=== PATIENT | female | born 1955 | race Caucasian/White ===

== ENCOUNTER 2016-12-30 18:53 | Emergency (ER) | payer OTHER ==
[2016-12-30] MEDS ORDERED: 0.9% Sodium Chloride 1,000 ML IV ONE (19:02)
--- NOTE | 2016-12-30 19:02 | ED.REPORT ---
HPI-Trauma Minor / Fall Date of Service Dec 30, 2016 ED Provider: Dr. Agee 61 y/o female with a hx of neck fusion surgery presents to the ED via EMS due to a head injury after a fall down 15 stairs onto concrete. Her GCS was 14. Pt' s did not witness the fall but found the pt on the ground, just prior to arrival. She has a laceration over her forehead and left ear bleed. As per the EMS, the pt had been drinking heavily prior to the fall. Her vitals en route were normal and she was answering questions appropriately. In the ED, the pt states she remembers falling down and reports a headache. She denies neck pain, loose teeth and pain in any other area. Nursing Notes Stated Complaint: FALL ON A CONCRETE FLOOR Nursing Notes Reviewed: Yes Allergies: Coded Allergies: No Known Allergies (Unverified Allergy, Unknown, 12/30/16) General Time Seen by MD: 19:02 Chief Complaint Fall down stairs (landed on concrete) Hx Obtained From: Patient, EMS Arrived By: Ambulance Onset Occurred: Onset unknown (found on the ground prior to arrival) Symptom Duration: Since onset Caused by: Fall down stairs Location: Head Quality: Painful Severity: Current: Severe Severity: Maximum: Severe Recent Healthcare: No recent doctor visit Similar Sx Previous: No Past Medical History Past Medical History GERD DEPRESSION ANXIETY CANCER Past Surgical History fusion in neck Smoking History Unknown if Ever Smoker Social History Other Social History: Ambulatory Status Independent Review of Systems Reports: laceration over forehead Reports: left ear bleeding Denies: loose teeth Musculoskeletal: Denies: Neck pain Neurologic: Reports: Headache Complete sys rev & neg: except as marked. Physical Exam Initial Vital Signs BP = 128/82 Temp = 101 O2 = 99 Resp = 17 GCS = 14 Initial VS: Reviewed, Vital signs abnormal Respiratory: Breath sounds normal, Clear to auscultation, No respiratory distress Cardiovascular: Regular rate & rhythm, Heart sounds normal, Intact distal pulses Abdomen / GI: Soft, Non-tender, No guarding, No rebound Skin: Warm, Dry, No cyanosis General/Constitutional: Awake, Alert Appearance / Presentation: Positive: Intoxicated Pt smelling of alcohol. Neck: Atraumatic, Non-tender Trauma - Neck Specific: Positive: Immobilized - C Collar Head / Eyes: PERRL, No periorbital swelling, No scleral icterus, Conjunctiva NL , Eyelids NL Large 4cm hematoma to left forehead ENT: Airway patent, Mucous membranes moist, No facial swelling, Gums/dentition NL Hematoma to left ear. Gross blood coming from left ear. Bruising behind left ear. Back: Inspection NL, Non-tender, No midline vertebral tend No step-off noted Redness to sacrum Lower Extremity / Pelvis / MS: No deformity, Neurologic intact, Vascular intact Bruising to her right farmer. Large hematoma and bruise to left proximal femur. Neurologic: No motor deficits, No sensory deficits Speech: Positive: Slurred She is a smell of alcohol, GCS of 14 Interpretation & Diagnostics Lab Results Interpretation Result Diagram: 12/30/16203812/30/16 1910 Test 12/30/16 19:10 12/30/16 20:39 White Blood Count 7.2th/mm3 (3.8-10.1) Red Blood Count 4.49mil/mm3 (3.90-5.20) Mean Corpuscular Volume 91.5fL (81-100) Mean Corpuscular Hemoglobin 29.8pg (27.0-35.0) Mean Corpuscular Hemoglobin Concent 32.6% (32.0-37.0) Red Cell Distribution Width 13.0% (12.3-15.4) Platelet Count 207bil/L (150-400) Neutrophils (%) (Auto) 57.0% (40-74) Lymphocytes (%) (Auto) 33.8% (14-46) Monocytes (%) (Auto) 6.1% (4-12) Eosinophils (%) (Auto) 2.1% (0-5) Basophils (%) (Auto) 0.6% (0-3) Prothrombin Time 9.9sec (8.1-12.5) Prothromb Time International Ratio 0.93ratio Activated Partial Thromboplast Time 18.7sec (22.8-33.0) Sodium Level 137mEq/L (134-144) Potassium Level 3.6mEq/L (3.5-5.2) Chloride Level 100mEq/L (97-108) Carbon Dioxide Level 21mmol/L (18-29) Blood Urea Nitrogen 11mg/dL (8-27) Creatinine 0.65mg/dL (0.57-1.00) Estimat Glomerular Filtration Rate 133mL/min (>59) Glucose Level 117mg/dL (60-99) Calcium Level 8.7mg/dL (8.5-10.1) Magnesium Level 2.0mg/dL (1.6-2.6) Total Bilirubin 0.2mg/dL (0.0-1.2) Aspartate Amino Transf (AST/SGOT) 42U/L (0-50) Alanine Aminotransferase (ALT/SGPT) 26U/L (0-32) Alkaline Phosphatase 72U/L (25-165) Total Protein 6.9g/dL (6.4-8.4) Albumin 4.1g/dL (3.4-5.0) Alcohols 280mg/dL (0-10) Hemoglobin 12.9g/dL (12.0-15.6) Hematocrit 39.2% (35.0-46.0) X-Ray Chest Interpretation Chest Xray Interpretation: IMPRESSION: No acute pulmonary process. Dictated by: Tereza Shrestha M.D. on 12/30/2016 at 19:48 Approved by: Tereza Shrestha M.D. on 12/30/2016 at 19:48 View: Portable, 1 view Interpretation / Wet Read by: Interpret - Radiologist X-Ray Interpretation Xray Interpretation: IMPRESSION: No visualized fracture. Occult injury cannot be excluded and followup imaging is recommended if clinical concern persists. Dictated by: Tereza Shrestha M.D. on 12/30/2016 at 19:46 Approved by: Tereza Shrestha M.D. on 12/30/2016 at 19:47 X-Ray Ordered: Pelvis Interpretation / Wet Read by: Interpret - Radiologist Xray Interpretation: IMPRESSION: No visualized acute fracture or dislocation. However, if clinical concern and/or pain persist, short interval imaging followup in 7-10 days is recommended, as occult injury cannot be definitively excluded. Dictated by: Tereza Shrestha M.D. on 12/30/2016 at 20:29 Approved by: Tereza Shrestha M.D. on 12/30/2016 at 20:30 X-Ray Ordered: Femur left Interpretation / Wet Read by: Interpret - Radiologist CT Head Interpretation IMPRESSION: 1. Multifocal areas of hyperdensity as described above most consistent with traumatic hemorrhage. 2. Depressed left frontal and nondisplaced left occipital skull fractures. It is noted that the occipital skull fracture extends along the margin of the posterior ring of C1 without displacement as above. 3. Fluid is present within the left mastoid air cells as well as auditory canals as described above. Fracture is felt to be present, although poorly characterized through the mastoid air cells and with likely extension towards the middle skull base. The above findings were discussed with Dr. Purvi Agee on 12/30/16 at 8 PM. Dictated by: Tereza Shrestha M.D. on 12/30/2016 at 20:22 Approved by: Tereza Shrestha M.D. on 12/30/2016 at 20:27 Study: Head CT no contrast Interpretation / Wet Read by: Interpret - Radiologist CT C-Spine Interpretation IMPRESSION: 1. Skull base fracture, incompletely visualized and there characterize on CT brain of 12/30/16 as above. 2. Extension of the occipital-occiput fracture extending along the superiormost aspect of the posterior ring of C1 without gross evidence of C1 ring fracture. 3. Left cerebellar hemorrhage, seen on CT brain 12/30/16. 4. Trace left pneumothorax with left anterior first and second rib fractures. The above findings were discussed with Dr. Purvi Agee on 12/30/16 at 8:35 PM. Dictated by: Tereza Shrestha M.D. on 12/30/2016 at 20:33 Approved by: Tereza Shrestha M.D. on 12/30/2016 at 20:46 Study type: CT no contrast Interpretation / Wet Read by: Interpret - Radiologist Re-Eval/Medical Decision Med Decision/Clinical Course Patient had a 15 foot fall, she is intoxicated. She has obvious signs of trauma to her head. CT reveals intracranial hemorrhage as well as depressed all fracture and clinically she has a basilar skull fracture. The patient was transferred to [facility]. The patient was cooperative while here and answering questions appropriately. The patient was oriented to person and time. While in the department she developed upper back pain, no imaging was obtained given the patient is being transferred to [facility] by a parent left and would be reevaluated. On initial exam the patient did not have any obvious deformities or pain to her spine. Source of Hx: Old records Re-Evaluation/Progress : Time of Eval: 20:08 Re-Evaluation/Progress Note: Rechecked pt. The pt now complaining of upper back pain. Discussed lab results, imaging results, diagnosis and plan to transfer. Pt understands and agrees with the plan. All questions addressed. Consultation : Call Returned at: 20:21 Generator Worker: Accepts admit Note: Dr. Fallon Franks at [facility] accepts transfer. Counseled Regarding: Diagnosis, Lab results, Need for transfer Discharge & Departure Impression: Primary Impression: Cerebral contusion Encounter type: initial encounter Laterality: unspecified laterality Loss of consciousness presence/duration: without LOC Qualified Code: S06.330A - Contusion and laceration of cerebrum, unspecified, without loss of consciousness , initial encounter Additional Impression: Depressed skull fracture Encounter type: initial encounter Fracture type: closed Qualified Code: S02.91XA - Unspecified fracture of skull, initial encounter for closed fracture Disposition: Transfer, Acute Care Facility Receiving Hospital: [facility] Transfer Accepted: Yes Transfer Accepted at: 20:21 Transfer Reason: Higher level of care Patient Status: Stable for transfer Patient Informed: Yes Referrals: Khadijah Maya MD (PCP) Scribe Attestation Portions of this note were transcribed by Dasia Paul. I, , personally performed the history, physical exam and medical decision-making;I reviewed and confirmed the accuracy of the information in the transcribed note. Signed by Hali Purvis. 12/30/16 20:48 copies to: Khadijah Maya MD, Jena M MD Dec 30, 2016 19:02 Dasia Paul Dec 30, 2016 20:04
[2016-12-30 19:26] LABS: BASOPHILS % (AUTO) 0.6 % (0-3); EOSINOPHILS % (AUTO) 2.1 % (0-5); MONOCYTES % (AUTO) 6.1 % (4-12); Mean Corpuscular Hemoglobin 29.8 pg (27.0-35.0); Mean Corpuscular Volume 91.5 fL (81-100); Platelet Count 207 bil/L (150-400)
[2016-12-30 19:44] LABS: INR 0.93 ratio
--- NOTE | 2016-12-30 19:49 | DRSVH ---
PROCEDURE: X-RAY PELVIS, ONE OR TWO VIEWS ([id number]) INDICATIONS: trauma - patient fell down a flight of stairs TECHNIQUE: 1 view(s) of the pelvis acquired. COMPARISON: None. FINDINGS: Bones: No fractures or dislocations. No suspicious bony lesions. Soft tissues: Visualized bowel gas pattern is normal. No suspicious soft tissue calcifications. IMPRESSION: No visualized fracture. Occult injury cannot be excluded and followup imaging is recomm ended if clinical concern persists. Dictated by: Tereza Shrestha M.D. on 12/30/2016 at 19:46 Approved by: Tereza Shrestha M.D. on 12/30/2016 at 19:47
--- NOTE | 2016-12-30 19:50 | DRSVH ---
PROCEDURE: X-RAY CHEST ONE VIEW, PORTABLE ([id number]) INDICATIONS: trauma - patient fell down a flight of stairs TECHNIQUE: One view of the chest was acquired. COMPARISON: None. FINDINGS: Surgical changes and devices: Partially visualized cervical fixation screws. Lungs and pleura: No pleural effusions or pneumothorax. Lungs are clear. Mediastinum: Mediastinal contours appear normal. Heart size is normal. Bones and chest wall: No suspicious bony lesions. Overlying soft tissues appear unremarkable. IMPRESSION: No acute pulmonary process. Dictated by: Tereza Shrestha M.D. on 12/30/2016 at 19:48 Approved by: Tereza Shrestha M.D. on 12/30/2016 at 19:48
[2016-12-30] MEDS ORDERED: TdaP Vaccine 0.5 mL Inj IM ONE (20:20)
--- NOTE | 2016-12-30 20:29 | DRSVH ---
PROCEDURE: CT BRAIN WITHOUT CONTRAST ([id number]) INDICATIONS: fall TECHNIQUE: Noncontrast 4.5 mm thick angled axial sections acquired from the foramen magnum to the vertex, with c oronal reformats. COMPARISON: [facility], CT, CT CERVICAL SPINE WO CON, 12/30/2016, 19:36. FINDINGS: Image quality: Excellent. CSF spaces: Basal cisterns are patent. No extra-axial fluid collections. Ventricles are normal in size and shape. Brain: No midline shift. Scattered areas of punctate hyperdensity are present in the left frontal t emporal parietal lobes. A focal area of hyperdensity measuring approximately 12 mm is present in the lateral aspect of the left cerebellum. There is a questionable increased hyperdense appearance of the tentorium. Skull and face: There is a prominent left frontal scalp hematoma. There is a mildly depressed left f rontal skull fracture. A nondisplaced left occipital occiput skull fracture is present. It is noted t hat fracture line extends along the superiormost posterior margin of the ring of C1. There is fluid w ithin the mastoid air cells on the left with nondisplaced fracture lucency traversing along the media l aspect. There is fluid within the internal and external auditory canals. The ossicles are grossly u nremarkable. However, they are only seen on one image. Vascular foramen appear intact. There is air a nd nondisplaced fracture along the anterior lateral aspect of the mastoid air cells. Sinuses: Visualized sinuses are clear. IMPRESSION: 1. Multifocal areas of hyperdensity as described above most consistent with traumatic hemorrhage. 2. Depressed left frontal and nondisplaced left occipital skull fractures. It is noted that the occip ital skull fracture extends along the margin of the posterior ring of C1 without displacement as abov e. 3. Fluid is present within the left mastoid air cells as well as auditory canals as described above. Fracture is felt to be present, although poorly characterized through the mastoid air cells and with likely extension towards the middle skull base. The above findings were discussed with Dr. Purvi Agee on 12/30/16 at 8 PM. Dictated by: Tereza Shrestha M.D. on 12/30/2016 at 20:22 Approved by: Tereza Shrestha M.D. on 12/30/2016 at 20:27
--- NOTE | 2016-12-30 20:31 | DRSVH ---
PROCEDURE: X-RAY LEFT FEMUR, TWO VIEWS ([id number]) INDICATIONS: trauma TECHNIQUE: 2 views of the femur were acquired. COMPARISON: [facility], CR, XR PELVIS 1 OR 2VW, 12/30/2016, 18:47. FINDINGS: Bones: No fractures or dislocations. No suspicious bony lesions. Soft tissues: No suspicious soft tissue calcifications or masses. IMPRESSION: No visualized acute fracture or dislocation. However, if clinical concern and/or pain pe rsist, short interval imaging followup in 7-10 days is recommended, as occult injury cannot be defini tively excluded. Dictated by: Tereza Shrestha M.D. on 12/30/2016 at 20:29 Approved by: Tereza Shrestha M.D. on 12/30/2016 at 20:30
--- NOTE | 2016-12-30 20:48 | DRSVH ---
PROCEDURE: CT CERVICAL SPINE WITHOUT CONTRAST ([id number]) INDICATIONS: fall TECHNIQUE: Noncontrast 3 mm thick sections acquired from the skull base to the T4 level. Sagittal and coronal r eformats were then constructed. For radiation dose reduction, the following was used: automated exp osure control, adjustment of mA and/or kV according to patient size. COMPARISON: None. FINDINGS: Image quality: Excellent. Bones: Anterior fixation is present at C5-6. There is trace anterolisthesis of C3 on C4, C4 on C5 and trace retrolisthesis of C5 on C6 and C6 on C7. As noted on the CT brain of 12/30/16, a nondisplaced left occipital occiput skull fracture is present. It is noted that a fracture line extends along the superiormost posterior margin of the ring of C1. There is fluid within the mastoid air cells on the left with nondisplaced fracture lucency traversing along the medial aspect. There is fluid within the internal and external auditory canals. There is air and nondisplaced fracture along the anterior lateral aspect of the mast oid air cells, as well as the medial aspect along the occipital bone. Soft tissues: Prevertebral soft tissues are normal in thickness. No paravertebral hematomas. Trace left apical pneumothorax with anterior left first and second rib fractures. Left cerebellar hyperdens ity is present. IMPRESSION: 1. Skull base fracture, incompletely visualized and there characterize on CT brain of 12/30/16 as abov e. 2. Extension of the occipital-occiput fracture extending along the superiormost aspect of the posteri or ring of C1 without gross evidence of C1 ring fracture. 3. Left cerebellar hemorrhage, seen on CT brain 12/30/16. 4. Trace left pneumothorax with left anterior first and second rib fractures. The above findings were discussed with Dr. Purvi Agee on 12/30/16 at 8:35 PM. Dictated by: Tereza Shrestha M.D. on 12/30/2016 at 20:33 Approved by: Tereza Shrestha M.D. on 12/30/2016 at 20:46
== END 2016-12-30 21:19 | disposition short-term general hospital (02) ==
LOC: SED 18:53
DX: S02.91XA Unspecified fracture of skull, initial encounter for closed fracture (principal); S06.330A Contusion and laceration of cerebrum, unspecified, without loss of consciousness, initial encounter; F10.120 Alcohol abuse with intoxication, uncomplicated; W10.9XXA Fall (on) (from) unspecified stairs and steps, initial encounter; Y93.01 Activity, walking, marching and hiking; Y99.8 Other external cause status; Y92.89 Other specified places as the place of occurrence of the external cause; K21.9 Gastro-esophageal reflux disease without esophagitis; Z23 Encounter for immunization
CPT/HCPCS: 36415; 70450; 71010; 72125; 72170; 73551; 80053; 83735; 85014; 85018; 85025; 85610; 85730; 86850; 90471; 99285; G0390; G0480; J7030